=== PATIENT | female | born 1950 | race Caucasian/White ===

== ENCOUNTER → 2018-07-09 16:10 | Outpatient (CLI) | payer OTHER, SELFPAY ==
--- NOTE | 2018-07-09 | LES_PTH ---
PATIENT: MERRITT PINEDA LOC: [facility] U#:[id number] AGE/SX: 74/F ROOM: RE07/09/[address]: Dr. Jose Thibodeaux, DHARMESH : 1950 BED: DIS: SPEC #: [id number] RECD: 07/09/18 15:38 STATUS: PETTY ALEX #: [id number] EVANGELINA: 07/09/18 00:[address]: Jose Thibodeaux DEPT: SURGICAL PATHOLOGY RECD BY: Jeremie Montalvo ENTERED: 07/10/18 13:38 SP TYPE: Lesion OTHR DR: No Primary Care Phys Tissues: Skin of lip, NOS Procedures: Surgery Specimen Level IV HEADER OPERATION: Biopsy lower lip PRE-OP DIAGNOSIS: Not noted TISSUE SUBMITTED: Lower lip MICROSCOPIC DIAGNOSIS Lesion of lower lip, biopsy: Elastosis, hyperkeratosis and focal vascular ectasia. No evidence of malignancy. AM:maryann 07/13/18 MICROSCOPIC DESCRIPTION Slides are reviewed. GROSS DESCRIPTION Received in fixative is one container labeled with the patient's name and designated lip. The specimen consists of a piece of bergeron-pink soft tissue measuring 0.3 x 0.2 x 0.1 cm. The specimen is totally submitted in one cassette. / SJ:maryann 07/10/18 TC:5 CPT: 41128
== END ==
PROVIDERS: Referring Provider Dentist Oral and Maxillofacial Surgery; Visit Provider Dentist Oral and Maxillofacial Surgery
DX: L85.9 Epidermal thickening, unspecified (principal)
CPT/HCPCS: 88305

== ENCOUNTER 2019-02-15 10:09 | Emergency (ER) | payer OTHER, SELFPAY ==
[2019-02-15 10:11] VITALS: BP 110/68; PULSE 62; RESP 17; TEMP 36.1; O2SAT 98; BMI 26.5
--- NOTE | 2019-02-15 14:33 | ED.RN ---
pt left without being seen
== END 2019-02-15 14:33 | disposition left against medical advice (07) ==
LOC: ED 14:15
PROVIDERS: Emergency Provider Emergency Medicine
DX: R51 Headache (principal); Z53.21 Procedure and treatment not carried out due to patient leaving prior to being seen by health care provider

== ENCOUNTER 2024-08-25 18:20 | Emergency (ER) | payer OTHER, SELFPAY ==
[2024-08-25 18:21] VITALS: BP 122/82; PULSE 70; RESP 18; TEMP 35.6; O2SAT 98
--- NOTE | 2024-08-25 18:47 | EDS_ITS ---
HPI HPI - Female History of Present Illness Chief Complaint: Complaint Narrative Narrative: 73-year-old female past medical history of longstanding gastrointestinal issues presents with urinary frequency that started today. She denies any fevers or chills, no nausea or vomiting associated with this. She does relate history that she has been having problems with urinary frequency. She denies any gross hematuria or pain with urination. She states she has to urinate every 1/2 hour. She saw her primary care provider who treated her with antibiotics for urinary tract infection. She finished that about a week ago. She had been doing well until today when her symptoms returned. No exacerbating or alleviating factors. PFSH PFSH Home Medications ?Medication ?Instructions ?Recorded ?Last Taken ?Type cephalexin 500 mg capsule 500 mg PO BID #14 caps 08/25/24 Unknown Rx Allergy/AdvReac Type Severity Reaction Status Date / Time No Known Allergies Allergy Verified 08/25/24 18:21 Social History Smoking Status: Unknown if ever smoked ROS ROS ED ROS Narrative Constitutional: No fever, no chills. HEENT: No sore throat. No neck pain. No loss of vision. No rhinorrhea. Cardiovascular: No chest pain. No palpitations. No pedal edema. Respiratory: No cough, no shortness of breath. Abdominal: No abdominal pain. No nausea. No vomiting. Genitourinary: No dysuria. No hematuria. Positive urinary frequency. Has to urinate every 30 minutes. Musculoskeletal: No myalgias. No arthralgias. Neurologic: No headaches. No dizziness. No lightheadedness. Skin: No rash. No change in color. EXAM Physical Exam Narrative Exam Narrative: Afebrile. Vital signs noted. Nontoxic-appearing. HEENT: Normocephalic. Atraumatic. PERRL, EOMI. Neck soft and supple. No point tenderness or step off. Cardiovascular: Regular rate and rhythm. No murmurs, rubs, or gallops appreciated. Respiratory: No tachypnea. Lungs clear to auscultation bilaterally. Gastrointestinal: Abdomen soft, nontender, with normoactive bowel sounds. No rebound or guarding. Neurological: Awake. Alert. Nonfocal, nonlateralizing. Skin: No rash. Normal color. No pallor. Musculoskeletal: No pedal edema. Full range of motion extremities. Const Vital Signs: 08/25/24 18:21 Temperature 96.1 F L Temperature Source Temporal Pulse Rate 70 Respiratory Rate 18 Blood Pressure 122/82 H Blood Pressure Mean 95 Pulse Ox 98 Oxygen Delivery Method Room Air MDM MDM MDM Narrative Medical decision making narrative: Differential diagnosis includes but not limited to urinary tract infection versus cystitis versus overactive bladder/bladder spasms. Patient is already taking dicyclomine, and pantoprazole for her gastrointestinal problems. She also takes BuSpar. I do not feel she needs blood work, but urinalysis will be obtained and urine sent for culture as well. I reviewed her urinalysis and there are 500 leukocyte esterase with 5-10 WBCs and rare bacteria. This was sent for culture. She may be have the beginnings of a urinary tract infection again given her urinary frequency. She was given her first dose of cephalexin here in the emergency department and a prescription written to take twice a day for the next week before her urine cultures return. Regarding her chronic abdominal pain with diarrhea, she is scheduled for a test on Friday, few days from now. I do not feel she currently needs any workup for this as she states whenever she eats she gets diarrhea and she is already being worked up for this as an outpatient. I feel she can be discharged to follow-up. Return instructions reviewed. Disposition is discharged home in stable condition. History & Record Review Discussion w/independent historian: Patient Lab Data Attestation: I reviewed the patient's lab results. Labs: Laboratory Results - last 24 hr 08/25/24 19:20 Urine Color Yellow Urine Clarity Clear Urine pH 7.0 Ur Specific [place] 1.010 Urine Protein Negative Urine Glucose (UA) Normal Urine Ketones Negative Urine Occult Blood 10 H Urine Nitrite Negative Urine Bilirubin Negative Urine Urobilinogen Normal Ur Leukocyte Esterase 500 H Urine RBC 0-5 SEEN Urine WBC 5-10 SEEN Ur Squamous Epith Cells 0-5 SEEN Urine Bacteria RARE Urine Mucus 0 SEEN Discharge Plan Triage Chief Complaint: Complaint ED Provider: Bjorn Tapia Dx/Rx/DC Orders Clinical Impression: Urinary frequency, Cystitis, Chronic abdominal pain Instructions: ED Cystitis Female Adult Prescriptions: New cephalexin 500 mg capsule 500 mg PO BID Qty: 14 0RF Primary Care Provider: Care Physician,No Primary Referrals: Care Physician,No Primary [Primary Care Provider] - Activity Restrictions/Additional Instructions: Return with fever, new or worsening symptoms. Follow-up with your primary care provider as soon as possible, especially over the next 3 to 5 days. Have your study performed on Friday as scheduled regarding your chronic abdominal pain/diarrhea. Print Language: Barb[place] Disposition Disposition: Home, Self Care
[2024-08-25 19:28] LABS: Mucous, Urine 0 SEEN /hpf (<or=2+)
[2024-08-25 19:29] LABS: Color, Urine Yellow (Yellow); Glucose, Dipstick Normal (Normal); Ketone-Dipstick Negative (Negative); Leukocyte Esterase-Dipstick 500 /ul (Negative); Nitrite-Dipstick Negative (Negative); Occult Blood-Urine 10 /ul (Negative); Protein-Dipstick Negative (Negative); Urine Bilirubin Dipstick Negative (Negative); Urine Clarity Clear (Clear); Urine Urobilinogen Normal (Normal)
[2024-08-25 19:35] LABS: White Blood Cells 5-10 SEEN /hpf (0-5)
[2024-08-25 19:36] LABS: Bacteria RARE /hpf (None Seen); Red Blood Cells-Urine 0-5 SEEN /hpf (0-5); Squamous Epithelial Cells - UA 0-5 SEEN /hpf (5-10)
[2024-08-25 20:20] VITALS: RESP 18
[2024-08-25] MEDS: Cephalexin 250 MG Capsule 500 MG PO (20:56)
== END 2024-08-25 20:59 | disposition home or self-care (01) ==
PROVIDERS: Emergency Provider Emergency Medicine; Visit Provider Emergency Medicine
DX: R35.0 Frequency of micturition (principal); N30.90 Cystitis, unspecified without hematuria; R10.9 Unspecified abdominal pain; G89.29 Other chronic pain
CPT/HCPCS: 81001; 87086; 99282